=== PATIENT | male | born 1970 | race Caucasian/White ===

== ENCOUNTER 2016-12-04 12:58 | Emergency (ER) | payer OTHER ==
[2016-12-04 13:02] VITALS: BP 165/93; BMI 35.9
--- NOTE | 2016-12-04 13:39 | DR.GENAD ---
HPI - PCP Primary Care Physician: MARK - Complaint/Symptoms Chief Complaint Doctors Comments: History as stated Chief Complaint:: HURT RIGHT ANKLE ABOUT 1030 THIS MORNING. HE STATED THAT HE MISSED A STEP AT [employer]UFF AND HURT HIS RIGHT ANKLE. - Source History Provided: Patient - Mode of Arrival Mode of Arrival: Ambulatory - Timing Onset of Chief Complaint: 12/04/16 PMH - PMH Past Medical History: Yes Past Medical History: Hypertension Past Medical History Comment: AROTIC STYNOSIS Past Surgical History: Yes Surgical History: Ortho Surgery - Family History History of Family Medical Conditions: Yes Family Medical History: Diabetes Mellitus, Cancer, Hypertension - Social History Does patient currently use any type of tobacco product: No Have you used tobacco products in the last 12 months: No Type of Tobacco Use: None Does any household member use tobacco: No Alcohol Use: None Do you use any recreational Drugs:: No Lives With: Family Lives Where: Home - infectious screening In the last 2 months have you had wt loss of >10#?: NO Have you had fever, night sweats or hemotysis?: No Have you traveled outside the country in the last 6 months?: No Isolation: Standard ROS - Review of Systems Constitutional: No Symptoms Reported Eyes: No Symptoms Reported ENTM: No Symptoms Reported Respiratoy: No Symptoms Reported Cardiovascular: No Symptoms Reported Gastrointestinal/Abdominal: No Symptoms Reported Genitourinary: No Symptoms Reported Neurological: No Symptoms Reported Musculoskeletal: No Symptoms Reported, Ankle Integumentary: No Symptoms Reported Hematologic/Lymphatic: No Symptoms Reported Endocrine: No Symptoms Reported Psychiatric: No Symptoms Reported PE - Vital Signs Vitals: Temperature 98.2 F Pulse Rate 75 Respiratory Rate 20 Blood Pressure 165/93 O2 Sat by Pulse Oximetry 97 - General Limitations: No Limitations General Appearance: Alert - Head Head Exam: Normal Inspection, Atraumatic - Eyes Eye exam: Normal Appearance, PERRL, EOMI - ENT ENT Exam: Normal Exam External Ear Exam: Normal External Inspection TM/Canal Exam: Bilateral Normal Nose Exam: Normal Nose Exam Mouth Exam: Normal Inspection Throat Exam: Normal Inspection - Neck Neck Exam: Normal Inspection, Full ROM - Chest Chest Inspection: Normal Inspection - Respiratory Respiratory Exam: Normal Lung Sounds Bilat Respiratory Exam: Bilateral Clear to Auscultation - Cardiovascular Cardiovascular Exam: Regular Rate, Normal Rhythm - Abdominal Exam Abdominal Exam: Normal Inspection Abdominal Tenderness: negative: RUQ, RLQ, LUQ, LLQ, Epigastrium, Suprapubic, Diffuse, Mild, Moderate, Severe, Other - Extremities Extremities Exam: Other (right ankle pain) - Back Back Exam: Normal Inspection, Full ROM - Neurologic Neurological Exam: Alert, Oriented X3, CN II-XII Intact - Psychiatric Psychiatric Exam: Normal Affect - Skin Skin Exam: Warm, Dry ROR - XRAY XRAY Interpreted by: Radiologist (Right ankle, negative for fracture or dislocation) - Diagnosis Discharge Problem: Ankle sprain Qualifiers: Encounter type: initial encounter Involved ligament of ankle: calcaneofibular ligament Laterality: right Qualified Code(s): S93.411A - Sprain of calcaneofibular ligament of right ankle, initial encounter - Discharge Plan Condition: Stable - Follow ups/Referrals Follow ups/Referrals: Hero Amaya [Primary Care Provider] - 3 days - Instructions
--- NOTE | 2016-12-04 13:53 | RAD ---
HISTORY: 46-year-old male with right ankle pain following twisting. Study: Three views right ankle. Comparison: None. Findings: Talar dome is intact No acute cortical disruption or dislocation can be identified. The ankle morti se remains well aligned. No significant soft tissue swelling or injury can be seen. The visualized portions of the talus and calcaneus are unremarkable. IMPRESSION: 1. Negative exam. Reported By:
== END 2016-12-04 14:22 | disposition home or self-care (01) ==
LOC: ER 12:58
DX: S93.411A Sprain of calcaneofibular ligament of right ankle, initial encounter (principal); W10.8XXA Fall (on) (from) other stairs and steps, initial encounter; Y92.22 Religious institution as the place of occurrence of the external cause
CPT/HCPCS: 73610; 99282; 99283